=== PATIENT | female | born 1995 | race Caucasian/White ===

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

== ENCOUNTER 2017-06-08 09:33 | Emergency (ER) | payer MEDICAID ==
[2017-06-08 09:53] VITALS: BP 120/53; PULSE 55; RESP 14; TEMP 97.5; O2SAT 96
--- NOTE | 2017-06-08 10:16 | EDPHY ---
H & P Time Seen by Provider: 06/08/17 09:58 HPI/ROS: Chief complaint. Eyelid swelling HPI. 22-year-old female presents emergency department with 3-4 day history of swelling to the upper right eyelid. She had a painful small nodule and was not sure whether this was a pimple or insect bite. Did not see an insect. Yesterday squeezing at it popped with some drainage of purulence. However this morning eyelid was swollen. She has no eye problems or change in her vision. No redness to the eye or drainage from the eye. No fever. Her left eye is normal. No congestion or sore throat. No similar symptoms previously ROS Constitutional. no fever/chills, no weakness Eyes. no problems with vision. Swelling to right upper eyelid ENT. no sore throat, no nasal drainage Cardiovascular. no chest pain Respiratory. no shortness of breath, no cough Abdominal. no abdominal pain, no nausea/vomiting, no diarrhea . no problems urinating MS. no calf pain/swelling, no neck/back pain, no joint pain Skin. no rash Lymph. no swollen glands Neuro. no headache, no dizziness, no difficulty walking or with speech Past Medical/Surgical History: Healthy Social History: Single, daily smoker, no alcohol Smoking Status: Current every day smoker Physical Exam: General Appearance: Alert pleasant well-developed female mild distress vital signs are stable Eyes: Pupils equal and round no pallor or injection. ENT, Mouth: Mucous membranes are moist. There is a 3-4 mm nodule on the lateral aspect of the right upper eyelid. It is not on them eyelid margin her rhythm. Slightly tender to palpation. Mild redness. The eye itself appears normal. Pupils are equal round reactive. No erythema or discharge from the eye Respiratory: There are no retractions, lungs are clear to auscultation. Cardiovascular: Regular rate and rhythm. Gastrointestinal: Abdomen is soft and nontender, no masses, bowel sounds normal. Neurological: Awake and alert, sensory and motor exams grossly normal. Skin: Warm and dry, no rashes. Musculoskeletal: Neck is supple nontender. Extremities symmetrical, full range of motion. Psychiatric: Patient is oriented X 3, there is no agitation. Constitutional: Initial Vital Signs Temperature (C) 36.4 C 06/08/17 09:40 Heart Rate 55 L 06/08/17 09:40 Respiratory Rate 14 06/08/17 09:40 Blood Pressure 120/53 L 06/08/17 09:40 O2 Sat (%) 96 06/08/17 09:40 O2 Delivery Mode Room Air Allergies/Adverse Reactions: acetaminophen [From Tylenol] Allergy (Verified 06/08/17 09:50) Home Medications: Medication Instructions Recorded Sulfamethox/Tmp 800/160 mg 1 tab PO BID #8 tab 06/08/17 [Bactrim Ds] Medical Decision Making ED Course/Re-evaluation: Patient remained stable. She and I discussed treatment plan including criteria for return importance of follow-up and further evaluation. She expresses understanding and agreement Differential Diagnosis: This appears to be a pimple with mild cellulitis after squeezing. The eye itself appears normal. No findings of periorbital cellulitis Departure - Departure Disposition: Home, Routine, Self-Care Clinical Impression: Cellulitis Qualifiers: Site of cellulitis: face Qualified Code(s): L03.211 - Cellulitis of face Condition: Good Instructions: Cellulitis (ED) Additional Instructions: Warm compresses 3 times daily for the next 2 days. No squeezing. Antibiotic ointment twice daily. Bactrim as antibiotic twice daily. Return for worsening pain, fever, swelling Referrals: CAROLINE GUNN,. [Primary Care Provider] - 2-3 days, if not improved Stand Alone Forms: Work Excuse Prescriptions: Sulfamethox/Tmp 800/160 mg [Bactrim Ds] 1 tab PO BID #8 tab
== END 2017-06-08 10:23 | disposition home or self-care (01) ==
LOC: CED 09:33
DX: L03.211 Cellulitis of face (principal); F17.200 Nicotine dependence, unspecified, uncomplicated